=== PATIENT | female | born 1950 | race Caucasian/White ===

== ENCOUNTER → 2020-01-21 | Outpatient (CLI) | payer MEDICARE, OTHER ==
--- NOTE | 2020-01-21 17:42 | RAD ---
Examination: 1. Left diagnostic mammogram. 2. Limited left breast ultrasound. INDICATION: 69-year-old woman recalled from screening for developing nodule in the lower-outer quadrant left breast. COMPARISON: 10/03/2016, 01/21/2020 and 11/21/2018 mammograms. FINDINGS: Additional views left breast show a circumscribed isodense oval mass in the middle third lateral left breast measuring 4.5 mm on the current examination, not changed from 4.4 mm as measured in 2016. The breast parenchyma is almost entirely fatty replaced. Targeted ultrasound was pursued of the lateral left breast and identified a 4.7 mm oval mass at the 3:00 position 6 cm from the nipple that likely correlates with the mammographic finding. No internal vascularity. Margins are somewhat obscured by surrounding fibroglandular tissue. IMPRESSION: Benign nodule in the middle third lateral left breast. Recommend return to routine screening next doing one year. BI-RADS Category 2 Benign Patient entered into a reminder system with target due date for next mammogram. BI-RADS 2 -- benign findings
== END | disposition home or self-care (01) ==
LOC: MAMMO 13:51
PROVIDERS: ATTEND Family Medicine
DX: N63.23 Unspecified lump in the left breast, lower outer quadrant (principal)
CPT/HCPCS: 76641; 77065; G0279; 77061

== ENCOUNTER 2020-11-18 17:29 | Emergency (ER) | payer MEDICARE, OTHER ==
[~2020-11-18] VITALS: Ht 165.1 cm; Wt 89.0 kg
[2020-11-18 18:29] LABS: BASO % 0 % (0-3); EOS # 0.5 x10^3/uL (0.0-0.7); EOS % 5 % (0-3); HEMATOCRIT 32.4 % (36.0-47.0); HEMOGLOBIN 11.4 g/dL (12.0-15.5); LYMPH # 2.6 x10^3/uL (1.0-4.8); LYMPH % 27 % (24-48); MEAN CORPUSCULAR HEMOGLOBIN 31 pg (25-35); MEAN CORPUSCULAR HGB CONC 35 g/dL (31-37); MEAN CORPUSCULAR VOLUME 89 fL (79-100); MONO # 0.8 x10^3/uL (0.0-1.1); MONO % 8 % (0-9); NEUT # 5.9 x10^3uL (1.8-7.7); NEUT % 60 % (31-73); PLATELET COUNT 259 x10^3/uL (140-400); RED BLOOD COUNT 3.64 x10^6/uL (3.50-5.40); RED CELL DISTRIBUTION WIDTH 13.7 % (11.5-14.5); WHITE BLOOD COUNT 9.8 x10^3/uL (4.0-11.0)
[2020-11-18] MEDS ORDERED: IV NORMAL SALINE 1,000ML 1,000 ML IV ONE ×2 (18:30→18:45)
[2020-11-18 18:37] LABS: CALCIUM 11.6 mg/dL (8.5-10.1); CREATININE 1.2 mg/dL (0.6-1.0); GFR 44.2; POTASSIUM 4.7 mmol/L (3.5-5.1)
[2020-11-18 18:43] LABS: TOTAL BILIRUBIN 0.6 mg/dL (0.2-1.0); TOTAL PROTEIN 8.2 g/dL (6.4-8.2)
[2020-11-18 18:50] LABS: BILIRUBIN,URINE NEG (NEG); CLARITY,URINE CLEAR; COLOR,URINE YELLOW; GLUCOSE,URINE >=1000 mg/dL (NEG)
[2020-11-18 18:51] LABS: BACTERIA,URINE 0 /HPF (0-FEW); NITRITE,URINE NEG (NEG); RBC,URINE OCC /HPF (0-2); SQUAMOUS EPITHELIAL CELL,UR FEW /LPF; UROBILINOGEN,URINE 0.2 mg/dL (0.2 mg/dL)
--- NOTE | 2020-11-18 19:09 | RAD ---
EXAM: XR CHEST 1V 11/18/2020 6:15 PM CLINICAL INDICATION: Hyperglycemia COMPARISON: None TECHNIQUE: AP upright view of the chest FINDINGS: The heart and mediastinum are normal. There are calcifications in the thoracic aorta. Lung s are well-expanded. There is are mild streaky opacities in the medial left lung base. No consolidati on, pleural effusion, or pneumothorax. Pulmonary vascularity is normal. The thoracic skeleton is in tact. IMPRESSION: Streaky opacities in the medial left lung base may reflect infection, aspiration, or satellite installer josh interstitial changes. Electronically signed by: Princess Herzog MD (11/18/2020 7:07 PM) [id number]
[2020-11-18] MEDS ORDERED: CEPHALEXIN 250 MG CAPSULE PO ONE (19:15)
[2020-11-18] MEDS ORDERED: INSULIN REGULAR 100 UNIT/ML 3ML VIAL. IV ONE (19:15)
--- NOTE | 2020-11-18 19:44 | PHYS DOC ---
Past History Past Medical History: Diabetes (KAREN MENEZES APRN) Past Surgical History: Appendectomy, Cholecystectomy (KAREN MENEZES APRN) Alcohol Use: None (KAREN MENEZES APRN) Adult General Chief Complaint Chief Complaint: BLOOD SUGAR PROBLEM HPI HPI Patient is a 70-year-old female presents emergency department with complaints that her blood glucose monitor at home was reading high during her evening glucose check. Patient states that she noticed that today she felt kind of off with general malaise specifically stating "I do still feel very good ". Patient denies fever or chills, denies shortness of breath, congestion, cough, chest pains, chest palpitations. Patient denies nausea, vomiting, diarrhea, abdominal pain, constipation, or seeing blood in her stools. Patient denies any increased thirst or increased urination. Patient denies any burning with urination, denies vaginal discharge. Patient denies any swelling of her extremities, patient denies rashes of her skin. Patient denies any other physical complaints or physical symptoms other than she just does not feel very good. Patient states that she has been a type II diabetic for many years. Patient denies cigarette smoking, denies illicit drug use, denies alcohol use. (KAREN MENEZES APRN) Review of Systems Review of Systems 14 body systems of review of systems have been reviewed. See HPI for pertinent positives and negative responses, otherwise all other systems are negative, nonpertinent or noncontributory. (KAREN MENEZES APRN) Current Medications Current Medications Current Medications Medications (Trade) Dose Ordered Sig/Sharon Start Time Stop Time Status Last Admin Dose Admin Cephalexin HCl (Keflex) 500 mg 1X ONCE 11/18/20 19:15 11/18/20 19:16 DC 11/18/20 19:11 500 MG Insulin Human Regular (HumuLIN R VIAL) 5 unit 1X ONCE 11/18/20 19:15 11/18/20 19:16 DC 11/18/20 19:09 5 UNIT Sodium Chloride 1,000 ml @ 1,000 mls/hr 1X ONCE 11/18/20 18:45 11/18/20 19:03 DC (KAREN MENEZES APRN) Allergies Allergies Allergies Coded Allergies Type Severity Reaction Last Updated Verified No Known Drug Allergies 11/18/20 No (KAREN MENEZES APRN) Physical Exam Physical Exam Constitutional: Well developed, well nourished, no acute distress, non-toxic appearance. HENT: Normocephalic, atraumatic, bilateral external ears normal, oropharynx moist, no oral exudates, nose normal. Eyes: PERRLA, EOMI, conjunctiva normal, no discharge. Neck: Normal range of motion, no tenderness, supple, no stridor. Cardiovascular:Heart rate regular rhythm, no murmur Lungs & Thorax: Bilateral breath sounds clear to auscultation Abdomen: Bowel sounds normal, soft, no tenderness, no masses, no pulsatile masses. Skin: Warm, dry, no erythema, no rash. Back: No tenderness, no CVA tenderness. Extremities: No tenderness, no cyanosis, no clubbing, ROM intact, no edema. Neurologic: Alert and oriented X 3, normal motor function, normal sensory function, no focal deficits noted. Patient was alert and oriented x3, patient did answer questions slowly. Psychologic: Affect normal, judgement normal, mood normal. (KAREN MENEZES APRN) Current Patient Data Vital Signs Vital Signs Date Time Temp Pulse Resp B/P (MAP) Pulse Ox O2 Delivery O2 Flow Rate FiO2 11/18/20 18:51 98.1 78 18 150/78 (102) 98 Lab Results Laboratory Tests Test 11/18/20 18:02 11/18/20 18:07 11/18/20 18:08 11/18/20 19:27 Bedside Venous pH 7.46 Bedside Venous pCO2 39 mmHg Bedside Venous pO2 78 mmHg Venous Blood HCO3 28 mmol/L POC Venous O2 Saturation (Alexandru) 96 % Bedside FiO2 21 Glucose (Fingerstick) 445 mg/dL 354 mg/dL White Blood Count 9.8 x10^3/uL Red Blood Count 3.64 x10^6/uL Hemoglobin 11.4 g/dL Hematocrit 32.4 % Mean Corpuscular Volume 89 fL Mean Corpuscular Hemoglobin 31 pg Mean Corpuscular Hemoglobin Concent 35 g/dL Red Cell Distribution Width 13.7 % Platelet Count 259 x10^3/uL Neutrophils (%) (Auto) 60 % Lymphocytes (%) (Auto) 27 % Monocytes (%) (Auto) 8 % Eosinophils (%) (Auto) 5 % Basophils (%) (Auto) 0 % Neutrophils # (Auto) 5.9 x10^3uL Lymphocytes # (Auto) 2.6 x10^3/uL Monocytes # (Auto) 0.8 x10^3/uL Eosinophils # (Auto) 0.5 x10^3/uL Basophils # (Auto) 0.0 x10^3/uL Urine Collection Type Unknown Urine Color Yellow Urine Clarity Clear Urine pH 6.0 Urine Specific [place] 1.010 Urine Protein Neg Urine Glucose (UA) >=1000 mg/dL Urine Ketones (Stick) Neg mg/dL Urine Blood Trace Urine Nitrite Neg Urine Bilirubin Neg Urine Urobilinogen Dipstick 0.2 mg/dL Urine Leukocyte Esterase Trace Urine RBC Occ /HPF Urine WBC 11-20 /HPF Urine Squamous Epithelial Cells Few /LPF Urine Bacteria 0 /HPF Sodium Level 129 mmol/L Potassium Level 4.7 mmol/L Chloride Level 94 mmol/L Carbon Dioxide Level 30 mmol/L Anion Gap 5 Blood Urea Nitrogen 23 mg/dL Creatinine 1.2 mg/dL Estimated GFR (Cockcroft-Gault) 44.2 BUN/Creatinine Ratio 19 Glucose Level 485 mg/dL Calcium Level 11.6 mg/dL Total Bilirubin 0.6 mg/dL Aspartate Amino Transf (AST/SGOT) 40 U/L Alanine Aminotransferase (ALT/SGPT) 44 U/L Alkaline Phosphatase 125 U/L Troponin I Quantitative < 0.017 ng/mL Total Protein 8.2 g/dL Albumin 4.0 g/dL Albumin/Globulin Ratio 1.0 Acetone Level Neg Test 11/18/20 19:56 Glucose (Fingerstick) 289 mg/dL Current Medications Medications (Trade) Dose Ordered Sig/Sharon Route PRN Reason Start Time Stop Time Status Last Admin Dose Admin Sodium Chloride 1,000 ml @ 1,000 mls/hr 1X ONCE IV 11/18/20 18:30 11/18/20 19:29 DC 11/18/20 18:30 Sodium Chloride 1,000 ml @ 1,000 mls/hr 1X ONCE IV 11/18/20 18:45 11/18/20 19:03 DC Insulin Human Regular (HumuLIN R VIAL) 5 unit 1X ONCE IV 11/18/20 19:15 11/18/20 19:16 DC 11/18/20 19:09 Cephalexin HCl (Keflex) 500 mg 1X ONCE PO 11/18/20 19:15 11/18/20 19:16 DC 11/18/20 19:11 Laboratory Tests Test 11/18/20 18:02 11/18/20 18:07 11/18/20 18:08 11/18/20 19:27 Bedside Venous pH 7.46 Bedside Venous pCO2 39 mmHg Bedside Venous pO2 78 mmHg Venous Blood HCO3 28 mmol/L POC Venous O2 Saturation (Alexandru) 96 % Bedside FiO2 21 Glucose (Fingerstick) 445 mg/dL 354 mg/dL White Blood Count 9.8 x10^3/uL Red Blood Count 3.64 x10^6/uL Hemoglobin 11.4 g/dL Hematocrit 32.4 % Mean Corpuscular Volume 89 fL Mean Corpuscular Hemoglobin 31 pg Mean Corpuscular Hemoglobin Concent 35 g/dL Red Cell Distribution Width 13.7 % Platelet Count 259 x10^3/uL Neutrophils (%) (Auto) 60 % Lymphocytes (%) (Auto) 27 % Monocytes (%) (Auto) 8 % Eosinophils (%) (Auto) 5 % Basophils (%) (Auto) 0 % Neutrophils # (Auto) 5.9 x10^3uL Lymphocytes # (Auto) 2.6 x10^3/uL Monocytes # (Auto) 0.8 x10^3/uL Eosinophils # (Auto) 0.5 x10^3/uL Basophils # (Auto) 0.0 x10^3/uL Urine Collection Type Unknown Urine Color Yellow Urine Clarity Clear Urine pH 6.0 Urine Specific [place] 1.010 Urine Protein Neg Urine Glucose (UA) >=1000 mg/dL Urine Ketones (Stick) Neg mg/dL Urine Blood Trace Urine Nitrite Neg Urine Bilirubin Neg Urine Urobilinogen Dipstick 0.2 mg/dL Urine Leukocyte Esterase Trace Urine RBC Occ /HPF Urine WBC 11-20 /HPF Urine Squamous Epithelial Cells Few /LPF Urine Bacteria 0 /HPF Sodium Level 129 mmol/L Potassium Level 4.7 mmol/L Chloride Level 94 mmol/L Carbon Dioxide Level 30 mmol/L Anion Gap 5 Blood Urea Nitrogen 23 mg/dL Creatinine 1.2 mg/dL Estimated GFR (Cockcroft-Gault) 44.2 BUN/Creatinine Ratio 19 Glucose Level 485 mg/dL Calcium Level 11.6 mg/dL Total Bilirubin 0.6 mg/dL Aspartate Amino Transf (AST/SGOT) 40 U/L Alanine Aminotransferase (ALT/SGPT) 44 U/L Alkaline Phosphatase 125 U/L Troponin I Quantitative < 0.017 ng/mL Total Protein 8.2 g/dL Albumin 4.0 g/dL Albumin/Globulin Ratio 1.0 Acetone Level Neg Test 11/18/20 19:56 Glucose (Fingerstick) 289 mg/dL Current Medications Medications (Trade) Dose Ordered Sig/Sharon Route PRN Reason Start Time Stop Time Status Last Admin Dose Admin Sodium Chloride 1,000 ml @ 1,000 mls/hr 1X ONCE IV 11/18/20 18:30 11/18/20 19:29 DC 11/18/20 18:30 Sodium Chloride 1,000 ml @ 1,000 mls/hr 1X ONCE IV 11/18/20 18:45 11/18/20 19:03 DC Insulin Human Regular (HumuLIN R VIAL) 5 unit 1X ONCE IV 11/18/20 19:15 11/18/20 19:16 DC 11/18/20 19:09 Cephalexin HCl (Keflex) 500 mg 1X ONCE PO 11/18/20 19:15 11/18/20 19:16 DC 11/18/20 19:11 Laboratory Tests Test 11/18/20 18:02 11/18/20 18:07 11/18/20 18:08 11/18/20 19:27 POC Venous pH 7.46 (7.32-7.42) H POC Venous pCO2 39 mmHg (41-51) L POC Venous pO2 78 mmHg (20-40) H Venous Blood HCO3 28 mmol/L (24-28) POC Venous O2 Saturation (Alexandru) 96 % POC FiO2 21 Glucose (Fingerstick) 445 mg/dL (70-99) H 354 mg/dL (70-99) H White Blood Count 9.8 x10^3/uL (4.0-11.0) Red Blood Count 3.64 x10^6/uL (3.50-5.40) Hemoglobin 11.4 g/dL (12.0-15.5) L Hematocrit 32.4 % (36.0-47.0) L Mean Corpuscular Volume 89 fL (79-100) Mean Corpuscular Hemoglobin 31 pg (25-35) Mean Corpuscular Hemoglobin Concent 35 g/dL (31-37) Red Cell Distribution Width 13.7 % (11.5-14.5) Platelet Count 259 x10^3/uL (140-400) Neutrophils (%) (Auto) 60 % (31-73) Lymphocytes (%) (Auto) 27 % (24-48) Monocytes (%) (Auto) 8 % (0-9) Eosinophils (%) (Auto) 5 % (0-3) H Basophils (%) (Auto) 0 % (0-3) Neutrophils # (Auto) 5.9 x10^3uL (1.8-7.7) Lymphocytes # (Auto) 2.6 x10^3/uL (1.0-4.8) Monocytes # (Auto) 0.8 x10^3/uL (0.0-1.1) Eosinophils # (Auto) 0.5 x10^3/uL (0.0-0.7) Basophils # (Auto) 0.0 x10^3/uL (0.0-0.2) Urine Collection Type Unknown Urine Color Yellow Urine Clarity Clear Urine pH 6.0 Urine Specific [place] 1.010 Urine Protein Neg (NEG-TRACE) Urine Glucose (UA) >=1000 mg/dL (NEG) Urine Ketones (Stick) Neg mg/dL (NEG) Urine Blood Trace (NEG) Urine Nitrite Neg (NEG) Urine Bilirubin Neg (NEG) Urine Urobilinogen Dipstick 0.2 mg/dL (0.2 mg/dL) Urine Leukocyte Esterase Trace (NEG) Urine RBC Occ /HPF (0-2) Urine WBC 11-20 /HPF (0-4) Urine Squamous Epithelial Cells Few /LPF Urine Bacteria 0 /HPF (0-FEW) Sodium Level 129 mmol/L (136-145) L Potassium Level 4.7 mmol/L (3.5-5.1) Chloride Level 94 mmol/L (98-107) L Carbon Dioxide Level 30 mmol/L (21-32) Anion Gap 5 (6-14) L Blood Urea Nitrogen 23 mg/dL (7-20) H Creatinine 1.2 mg/dL (0.6-1.0) H Estimated GFR (Cockcroft-Gault) 44.2 BUN/Creatinine Ratio 19 (6-20) Glucose Level 485 mg/dL (70-99) H Calcium Level 11.6 mg/dL (8.5-10.1) H Total Bilirubin 0.6 mg/dL (0.2-1.0) Aspartate Amino Transferase (AST) 40 U/L (15-37) H Alanine Aminotransferase (ALT) 44 U/L (14-59) Alkaline Phosphatase 125 U/L (46-116) H Troponin I Quantitative < 0.017 ng/mL (0-0.055) Total Protein 8.2 g/dL (6.4-8.2) Albumin 4.0 g/dL (3.4-5.0) Albumin/Globulin Ratio 1.0 (1.0-1.7) Acetone Level Neg (NEG) (KAREN MENEZES APRN) EKG EKG EKG performed 1812 by ED nursing staff shows normal sinus rhythm without ectopy heart rate 96 bpm, [place] interval 0.144, QTc interval 0.441, no acute STEMI, no acute ischemia, no ACS noted, EKG interpreted by ED attending Dr. Monroy (KAREN MENEZES APRN) Radiology/Procedures Radiology/Procedures [] (AKREN MENEZES APRN) Heart Score Risk Factors: Risk Factors: DM, Current or recent (<one month) smoker, HTN, HLP, family history of CAD, obesity. Risk Scores: Risk Factors: DM, Current or recent (<one month) smoker, HTN, HLP, family history of CAD, obesity. (KAREN MENEZES APRN) Course & Med Decision Making Course & Med Decision Making Pertinent Labs and Imaging studies reviewed. (See chart for details) 70-year-old female [facility] emergency department plan of glucose monitor at home reading high. Patient's glucose here was 446, the patient was not in DKA, patient's urine concerning for cystitis with hematuria, patient started on p.o. Keflex. Patient was given 1 L normal saline along with 5 units of IV regular insulin. Repeat examination of the patient found patient stating that she feels much better and no longer has the presenting symptoms when she first arrived to the ER, patient repeat [id number] bedside blood sugar was 289. Discussed findings with patient needing to be on antibiotic for UTI, patient will need to call her primary care physician Dr. Nagy on Saturday to consider medication regimen changes related to her type 2 diabetes. Patient gave verbal understanding of this, patient has good home care system to include her son and [id number] who also gave verbal understanding of patient's antibiotic home regimen, and need to talk to her primary care physician Dr. Clarisa Nagy on Saturday to discuss type 2 diabetes medication regimen changes. Patient gave verbal understanding of return to ER precautions and concerns, there are no more questions or concerns patient discharged home. (KAREN MENEZES APRN) Dragon Disclaimer Dragon Disclaimer This electronic medical record was generated, in whole or in part, using a voice recognition dictation system. (KAREN MENEZES APRN) Attending Co-Sign I oversaw on the above date of service of this patient and discussed the care with the GAS ENGINEER. I agree with the findings, plan of care, and disposition as documented. (MAGNOLIA MONROY DO) Departure Departure: Impression: Primary Impression: Hyperglycemia due to type 2 diabetes mellitus Additional Impression: Urinary tract infection Disposition: DC HOME SELF CARE/HOMELESS Condition: IMPROVED Referrals: CLARISA NAGY MD (PCP) Patient Instructions: Urinary Tract Infection Additional Instructions: Please call your Dr. Clarisa Nagy on Saturday to discuss your urinary tract infection and your unstable blood sugars at home so that she may determine if a medication change is needed. Please return to emergency department for worsening symptoms or other concerns. Please take oral antibiotics as directed until completed. EMERGENCY DEPARTMENT GENERAL DISCHARGE INSTRUCTIONS Thank you for coming to [facility] (ED) today and trusting us with you care. We trust that you had a positivie experience in our Emergency Department. If you wish to speak to the department management, you may call the director at [phone]. YOUR FOLLOW UP INSTRUCTIONS ARE FOLLOWS: 1. Do you have a private Doctor? If you do not have a private doctor, please ask for a resource list of physicians or clinics that may be able to assist you with follow up care. 2. The Emergency Physician has interpreted your x-rays. The X-Ray specialist will also review them. If there is a change in the findings, you will be notified in 48 hours when at all possible. 3. A lab test or culture has been done, your results will be reviewed and you will be notified if you need a change in treatment. ADDITIONAL INSTRUCTIONS AND INFORMATION: 1. Your care today has been supervised by a physician who is specially trained in emergency care. Many problems require more than one evaluation for a complete diagnosis and treatment. We recommend that you schedule your follow up appointment as recommended to ensure complete treatment of you illness or injury. If you are unable to obtain follow up care and continue to have a problem, or if your condition worsens, we recommend that you return to the ED. 2. We are not able to safely determine your condition over the phone nor are we able to give sound medical advice over the phone. For these safety reasons, if you call for medical advice we will ask you to come to the ED for further evaluation. 3. If you have any questions regarding these discharge instructions please call the ED at [phone]. SAFETY INFORMATION: In the interest of safety, wellness, and injury prevention; we encourage you to wear your sealbelt, if you smoke; quite smoking, and we encourage family to use a protective helmet for bicycling and other sporting events that present an increased risk for head injury. IF YOUR SYMPTOMS WORSEN OR NEW SYMPTOMS DEVELOP, OR YOU HAVE CONCERNS ABOUT YOUR CONDITION; OR IF YOUR CONDITION WORSENS WHILE YOU ARE WAITING FOR YOUR FOLLOW UP APPOINTMENT; EITHER CONTACT YOUR PRIMARY CARE DOCTOR, THE PHYSICIAN WHOSE NAME AND NUMBER YOU WERE GIVEN, OR RETURN TO THE ED IMMEDIATELY. Scripts Cephalexin (KEFLEX) 500 Mg Capsule 500 MG PO BID for UTI for 7 Days, #14 CAP 0 Refills Prov: KAREN MENEZES APRN 11/18/20 Problem Qualifiers Primary Impression: Hyperglycemia due to type 2 diabetes mellitus Diabetes mellitus roasterman insulin use: with custodial use Qualified Codes: E11.65 - Type 2 diabetes mellitus with hyperglycemia; Z79.4 - roasterman (current) use of insulin Additional Impression: Urinary tract infection Urinary tract infection type: site unspecified Hematuria presence: with hematuria Qualified Codes: N39.0 - Urinary tract infection, site not specified; R31.9 - Hematuria, unspecified KAREN MENEZES APRN Nov 18, 2020 19:44 MAGNOLIA MONROY DO Nov 19, 2020 18:27
[2020-11-18 20:07] VITALS: BP 155/78
[2020-11-18] MEDS ORDERED: CEPH-264 PO (20:11)
--- NOTE | 2020-11-18 22:17 | EKG ---
[address] [address] Test Date: 2020-11-18 Test Time: 18:13:12 Pat Name: JULY YAN Department: Room: Gender: F Residential Instructor: SUJATA : [id number] Requested By: MAGNOLIA MONROY Order Number: [id number] Reading MD: Measurements Intervals Hallie Rate: 96 P: 34 MO: 144 QRS: 17 QRSD: 84 T: 59 QT: 348 QTc: 441 Interpretive Statements SINUS RHYTHM NORMAL ECG RI6.02 No previous ECG available for comparison
== END 2020-11-18 20:20 | disposition home or self-care (01) ==
LOC: ER 17:29
DX: E11.65 Type 2 diabetes mellitus with hyperglycemia (principal); N39.0 Urinary tract infection, site not specified; R53.81 Other malaise; Z90.49 Acquired absence of other specified parts of digestive tract; Z90.89 Acquired absence of other organs
CPT/HCPCS: 36415; 71045; 80053; 81001; 82010; 82803; 82947; 84484; 85025; 87086; 93005; 96361; 96374; 99285; J1815; J7030; 87077